=== PATIENT | female | born 1965 | race Caucasian/White ===

== ENCOUNTER 2020-05-28 15:57 | Emergency (ER) | payer SELFPAY ==
--- NOTE | 2020-05-28 16:20 | ER Document Report ---
ED Medical Screen (RME) - General Chief Complaint: Lower Abdominal Pain Stated Complaint: LOWER ABDOMINAL PAIN Time Seen by Provider: 05/28/20 16:15 Mode of Arrival: Ambulatory Information source: Patient Notes: 54-year-old female presented to ED for left lower quadrant abdominal pain. She states she did have a fever last night of 100.4. She states the abdominal pain has been since it is now Saturday. She states she has had diverticulitis in the past about 4 or 5 years ago. We will get blood urine and a oral contrasted CT. patient states she has history of gastroparesis and she has a loop recorder in her chest for her heart. She states she is allergic to IV contrast. I have greeted and performed a rapid initial assessment of this patient. A comprehensive ED assessment and evaluation of the patient, analysis of test results and completion of medical decision making process will be conducted by an additional ED providers. - Related Data Allergies/Adverse Reactions: amoxicillin Allergy (Verified 05/28/20 16:18) aspirin Allergy (Verified 05/28/20 16:18) cefuroxime [From Ceftin] Allergy (Verified 05/28/20 16:18) clarithromycin Allergy (Verified 05/28/20 16:18) ibuprofen [From Motrin] Allergy (Verified 05/28/20 16:18) Iodinated Contrast Media Allergy (Verified 05/28/20 16:18) metronidazole [From Flagyl] Allergy (Verified 05/28/20 16:18) NSAIDS (Non-Steroidal Anti-Inflamma Allergy (Verified 05/28/20 16:18) Physical Exam - Vital signs Vitals: Temp Pulse Resp BP Pulse Ox 99.1 F 105 H 18 141/108 H 96 05/28/20 16:01 05/28/20 16:01 05/28/20 16:01 05/28/20 16:01 05/28/20 16:01 Course - Vital Signs Vital signs: Temp Pulse Resp BP Pulse Ox 99.1 F 105 H 18 141/108 H 96 05/28/20 16:01 05/28/20 16:01 05/28/20 16:01 05/28/20 16:01 05/28/20 16:01
[2020-05-28 17:20] LABS: ABSOLUTE BASOPHILS # (AUTO) 0.1 10^3/uL (0.0-0.2); ABSOLUTE EOSINOPHILS # (AUTO) 0.1 10^3/uL (0.0-0.6); ABSOLUTE MONOCYTES (AUTO) 1.1 10^3/uL (0.1-1.4); ABSOLUTE NEUT (AUTO) 7.6 10^3/uL (1.7-8.2); BASOPHILS % (AUTO) 0.7 % (0-2); EOSINOPHILS % (AUTO) 0.9 % (0-6); HEMATOCRIT 42.5 % (36.0-47.0); HEMOGLOBIN 14.3 g/dL (12.0-15.5); LYMPHOCYTES % (AUTO) 25.1 % (13-45); MEAN CORPUSCULAR HEMOGLOBIN 29.2 pg (27.0-33.4); MEAN CORPUSCULAR HGB CONC 33.6 g/dL (32.0-36.0); MEAN CORPUSCULAR VOLUME 87 fl (80-97); MONOCYTES % (AUTO) 9.4 % (3-13); PLATELET COUNT 557 10^3/uL (150-450); RED BLOOD COUNT 4.89 10^6/uL (3.72-5.28); RED CELL DISTRIBUTION WIDTH 14.7 % (11.5-14.0); SEGMENTED NEUTROPHILS % (AUTO) 63.9 % (42-78); TOTAL CELLS COUNTED % (AUTO) 100 %; WHITE BLOOD COUNT 11.9 10^3/uL (4.0-10.5)
[2020-05-28 17:39] LABS: ALBUMIN 4.3 g/dL (3.5-5.0); ALKALINE PHOSPHATASE 107 U/L (38-126); ANION GAP 8 (5-19); ASPARTATE AMINO TRANSFERASE 23 U/L (14-36); BILIRUBIN,TOTAL 0.7 mg/dL (0.2-1.3); BLOOD UREA NITROGEN 9 mg/dL (7-20); CARBON DIOXIDE 24 mmol/L (22-30); CHLORIDE 105 mmol/L (98-107); GLUCOSE 100 mg/dL (75-110); POTASSIUM 4.5 mmol/L (3.6-5.0); TOTAL PROTEIN 7.5 g/dL (6.3-8.2)
--- NOTE | 2020-05-28 19:51 | RADIOLOGY REPORT (SQ) ---
EXAM DESCRIPTION: CT ABD/PELVIS ORAL ONLY IMAGES COMPLETED DATE/TIME: 05/28/2020 7:30 pm REASON FOR STUDY: left lower abd pain allergic IV contrast COMPARISON: None. TECHNIQUE: CT scan of the abdomen and pelvis performed with oral contrast and no intravenous contras t. Images reviewed with lung, soft tissue, and bone windows. Reconstructed coronal and sagittal MPR i mages reviewed. All images stored on PACS. All CT scanners at this facility use dose modulation, iterative reconstruction, and/or weight based d osing when appropriate to reduce radiation dose to as low as reasonably achievable (ALARA). [facility]: Dose Right [facility]: CareDose [facility]: Dose Right [facility]: Teradose 4D [facility]: Smart ScreachTV RADIATION DOSE: CT Rad equipment meets quality standard of care and radiation dose reduction techniq ues were employed. CTDIvol: 4.8 mGy. DLP: 230 mGy-cm.mGy. LIMITATIONS: None. FINDINGS: LOWER CHEST: No significant findings. No nodules or infiltrates. NON-CONTRASTED LIVER, SPLEEN, ADRENALS: Evaluation limited by lack of IV contrast. The liver is diff usely hypoattenuating. No identified significant masses. The spleen has been surgically removed. T here is a 3.0 x 3.0 x 2.6 cm soft tissue density at the pancreatic tail likely representing splenosis . PANCREAS: No masses. No peripancreatic inflammatory changes. GALLBLADDER: No identified stones by CT criteria. No inflammatory changes to suggest cholecystitis. RIGHT KIDNEY AND URETER: No solid masses. No significant calcification. No hydronephrosis or hydroure ter. LEFT KIDNEY AND URETER: No solid masses. No significant calcification. No hydronephrosis or hydrouret er. AORTA AND RETROPERITONEUM: No aneurysm. No retroperitoneal masses or adenopathy. Mild scattered athe rosclerotic calcifications. BOWEL AND PERITONEAL CAVITY: A few diverticula are present off the sigmoid colon. There is subtle in flammatory stranding about 1 of these diverticulum (coronal image 29 and axial image 60). No free ai r. No abscess formation. The small and large bowel are normal in caliber without evidence for bowel obstruction. APPENDIX: Surgically absent. PELVIS, BLADDER, AND ABDOMINAL WALL: No abnormal pelvic masses. Status post hysterectomy. No abdomi nal wall hernias. Bladder unremarkable. BONES: No significant findings. OTHER: No other significant finding. IMPRESSION: Uncomplicated sigmoid diverticulitis. Recommend follow-up direct visualization (i.e. co lonoscopy) after resolution of acute episode to exclude an underlying mass. Hepatic steatosis. TECHNICAL DOCUMENTATION: JOB ID: [id number] Quality ID # [id number]: Final reports with documentation of one or more dose reduction techniques (e.g., Au tomated exposure control, adjustment of the mA and/or kV according to patient size, use of iterative reconstruction technique) 2010 [employer]- All Rights Reserved Reading location - IP/workstation name: [email or web address]
--- NOTE | 2020-05-28 20:13 | ER Document Report ---
ED General - General Chief Complaint: Abdominal Pain Stated Complaint: LOWER ABDOMINAL PAIN Time Seen by Provider: 05/28/20 16:15 Primary Care Provider: SAM BRYANT MD [ACTIVE STAFF] - Follow up in 3-5 days (for GI follow up) LORETTA COOK MD [ACTIVE STAFF] - Follow up as needed (for cardiology follow up) Mode of Arrival: Ambulatory - [facility] Notes: 54-year-old female with past medical history for diverticulitis, gastroparesis, tachycardia with loop monitor to the emergency department with complaints of left lower quadrant abdominal pain that is been getting worse for the past week. Admits to nausea but no vomiting. States that she has been running a fever with T-max of 100.4. She states that she has had a history of diverticulitis and this feels the same. She cannot remember the last time she had a colonoscopy. She states she just recently moved down here from [place] 2 weeks ago and has not yet established primary care. She denies any chest pain, shortness of breath, vomiting, diarrhea. Denies any blood in her stool. She states she did initially think that she was being constipated and took a laxative. When then did not relieve her pain, she decided to come get seen. - Related Data Allergies/Adverse Reactions: amoxicillin Allergy (Verified 05/28/20 16:18) aspirin Allergy (Verified 05/28/20 16:18) cefuroxime [From Ceftin] Allergy (Verified 05/28/20 16:18) clarithromycin Allergy (Verified 05/28/20 16:18) ibuprofen [From Motrin] Allergy (Verified 05/28/20 16:18) Iodinated Contrast Media Allergy (Verified 05/28/20 16:18) metronidazole [From Flagyl] Allergy (Verified 05/28/20 16:18) NSAIDS (Non-Steroidal Anti-Inflamma Allergy (Verified 05/28/20 16:18) Home Medications: fludrocortisone. ondansetron. pantoprazole. metoprolol. midodrine Past Medical History - General Information source: Patient - Social History Smoking Status: Current Every Day Smoker Chew tobacco use (# tins/day): No Frequency of alcohol use: Occasional Drug Abuse: Marijuana Family History: Reviewed & Not Pertinent Patient has homicidal ideation: No Review of Systems - Review of Systems Constitutional: Fever. denies: Chills EENT: No symptoms reported Cardiovascular: denies: Chest pain, Palpitations, Heart racing, Dizziness, Lightheaded, Edema Respiratory: denies: Cough, Short of breath Gastrointestinal: Abdominal pain, Nausea. denies: Diarrhea, Vomiting Genitourinary: No symptoms reported Female Genitourinary: No symptoms reported Musculoskeletal: No symptoms reported Skin: No symptoms reported Hematologic/Lymphatic: No symptoms reported Neurological/Psychological: No symptoms reported -: Yes All other systems reviewed and negative Physical Exam - Vital signs Vitals: Temp Pulse Resp BP Pulse Ox 99.1 F 105 H 18 141/108 H 96 05/28/20 16:01 05/28/20 16:01 05/28/20 16:01 05/28/20 16:01 05/28/20 16:01 Interpretation: Hypertensive, Tachycardic - Notes Notes: PHYSICAL EXAMINATION: GENERAL: Chronically ill-appearing 54-year-old who looks older than her stated age but in no acute distress HEAD: Atraumatic, normocephalic. EYES: Pupils equal round and reactive to light, extraocular movements intact, sclera anicteric, conjunctiva are normal. ENT: nares patent, oropharynx clear without exudates. Moist mucous membranes. NECK: Normal range of motion, supple without lymphadenopathy LUNGS: Breath sounds clear to auscultation bilaterally and equal. No wheezes rales or rhonchi. HEART: Regular rate and rhythm without murmurs ABDOMEN: There is tenderness to palpation over the left lower quadrant. There is no tenderness to palpation in the left upper quadrant, epigastrium, right upper quadrant, right lower quadrant. Normoactive bowel sounds. No guarding, no rebound. No masses appreciated. No CVA tenderness EXTREMITIES: Normal range of motion, no pitting or edema. No cyanosis. NEUROLOGICAL: No focal neurological deficits. Moves all extremities spontaneously and on command. PSYCH: Normal mood, normal affect. SKIN: Warm, Dry, normal turgor, no rashes or lesions noted. Course - Re-evaluation Re-evalutation: 05/28/20 23:[address] Payne, ER attending. Patient has several allergies that prevent me from treating her with a more regular antibiotic course for diverticulitis. She is allergic to amoxicillin and Flagyl. Dr. Asim wilson and I discussed appropriate antibiotics and using varying sources decided we would give her IV fluoroquinolone here with some clindamycin and then sent home with moxifloxacin for 400 mg once a day for 10 days. Discussed abx options with patient. Discussed risk profile of fluoroquinolones to include tendon rupture. Patient agrees with the plan. Also discussed with her plan for antiemetics. Since she has a tachyarrhythmia that is followed by cardiology in regard to use fluoroquinolones, will avoid Zofran for the prolonged QT interaction and sent home with Phenergan. I have encouraged her to return if she has any worsening symptoms. I have also encouraged her to follow- up with GI. She requests information for follow-up for outpatient cardiology. She is trying to get all of her physicians lined up. She is plugged in with social services technician and they are trying to get her Medicaid transferred from [place] down to [place] because she is also under disability. Impression: Uncomplicated diverticulitis with LLQ abd pain. Patient has had good pain control here in the emergency department and we will send home with moxifloxacin, Phenergan, pain control. She is to return if worse. Patient agrees with the plan - Vital Signs Vital signs: Temp Pulse Resp BP Pulse Ox 99.0 F 89 16 128/86 H 98 05/28/20 23:53 05/28/20 23:53 05/28/20 23:53 05/28/20 23:53 05/28/20 23:53 Noted improved vital signs. - Laboratory Result Diagrams: 05/28/20 16:46 05/28/20 16:46 Laboratory results interpreted by me: 05/28/20 05/28/20 05/28/20 16:30 16:46 16:46 WBC 11.9 H RDW 14.7 H Plt Count 557 H Sodium 136.9 L Urine Protein 30 H Urine Ketones TRACE H Urine Blood SMALL H Urine Urobilinogen 4.0 H - Diagnostic Test Radiology reviewed: Image reviewed, Reports reviewed Discharge - Discharge Clinical Impression: Diverticulitis, Left lower quadrant abdominal pain Condition: Stable Disposition: HOME, SELF-CARE Instructions: Diverticulitis ([facility]) Additional Instructions: Please return if you have worsening pain, intractable nausea or vomiting, blood in your vomit or stool, or any other concerning symptoms. You had a finding of uncomplicated diverticulitis on your CT today. Please follow-up with the GI specialist listed for you. You requested information for executive account manager since he just moved to the area. That is also been provided for you. Please take all antibiotics as prescribed. Prescriptions: Moxifloxacin HCl 400 mg PO DAILY #10 tablet Hydrocodone/Acetaminophen [[place] 5-325 mg Tablet] 1 tab PO Q6H #12 tablet Promethazine HCl [Phenergan 25 mg Tablet] 25 mg PO Q6H PRN #20 tablet PRN Reason: Referrals: SAM BRYANT MD [ACTIVE STAFF] - Follow up in 3-5 days (for GI follow up) LORETTA COOK MD [ACTIVE STAFF] - Follow up as needed (for cardiology follow up)
[2020-05-28] MEDS ORDERED: MORPHINE SULFATE 10 MG/ML INJ IV ONE (20:52)
[2020-05-28] MEDS ORDERED: NORMAL SALINE 1000 ML 1,000 ML IV ONE (20:52)
[2020-05-28] MEDS ORDERED: ONDANSETRON HCL INJ/PF 4 MG/2 ML SDV IV ONE (20:52)
[2020-05-28] MEDS ORDERED: LEVOFLOXACIN 500 MG/D5W RTU 500 MG/100 ML RTUPB IV ONE (21:05)
[2020-05-28] MEDS ORDERED: CLINDAMYCIN HCL 150 MG CAPSULE PO ONE (21:05)
[2020-05-28] MEDS ORDERED: PROMETHAZINE HCL INJ 50 MG/1 ML VIAL IM ONE (21:19)
[2020-05-28] MEDS ORDERED: PROMETHAZINE HCL INJ 25 MG/1 ML VIAL ONE (21:21)
[2020-05-28] MEDS ORDERED: PROMETHAZINE HCL INJ 25 MG/1 ML VIAL IM ONE (21:32)
[2020-05-28 22:12] LABS: AMORPHOUS SEDIMENT,URINE 1+ /HPF; APPEARANCE,URINE TURBID; BILIRUBIN,URINE NEGATIVE (NEGATIVE); COLOR,URINE YELLOW; GLUCOSE, URINE NEGATIVE (NEGATIVE); KETONES,URINE TRACE mg/dL (NEGATIVE); LEUKOCYTE ESTERASE,URINE NEGATIVE (NEGATIVE); NITRITE,URINE NEGATIVE (NEGATIVE); PROTEIN,URINE 30 mg/dL (NEGATIVE); URINE SPECIFIC GRAVITY 1.029
[2020-05-28 23:57] VITALS: BP 128/86
== END 2020-05-28 23:53 | disposition home or self-care (01) ==
LOC: ER 15:57
DX: K57.32 Diverticulitis of large intestine without perforation or abscess without bleeding (principal); F17.200 Nicotine dependence, unspecified, uncomplicated; F12.10 Cannabis abuse, uncomplicated; R10.32 Left lower quadrant pain; R10.814 Left lower quadrant abdominal tenderness; R11.0 Nausea; R50.9 Fever, unspecified; R00.0 Tachycardia, unspecified; Z79.52 Long term (current) use of systemic steroids; Z79.899 Other long term (current) drug therapy; Z88.0 Allergy status to penicillin; Z88.8 Allergy status to other drugs, medicaments and biological substances; Z88.1 Allergy status to other antibiotic agents; Z91.041 Radiographic dye allergy status
CPT/HCPCS: 99285; 96372; 96375; 96365; 36415; 87040; 87086; 83690; 85025; 80053; 81001; 74176; J1956; J2270; J2550; J7030